=== PATIENT | male | born 1960 | race Hispanic/Latino ===

== ENCOUNTER → 2017-09-15 | Outpatient (CLI) | payer BC ==
[~2017-09-15] MED LIST: AMLODIPINE BESY10 MG PO; CARAFATE1 GM PO; CELEBREX100 MG PO; HYDROCODON-ACE1 EA11 PO; MINOXIDIL2.5 MG PO; OMEPRAZOLE40 MG PO; PANTOPRAZOLE SO40 MG PO; PYLERA CAPSULE1 EACH PO; lotrel
--- NOTE | 2017-09-15 12:32 | Diagnostic Imaging Report ---
EXAMINATION: MRI of the lumbar spine without contrast HISTORY: Low-back pain radiating to the right lower extremity for last 2 years with numbness and weakness COMPARISON: None. TECHNIQUE: Sagittal T1, T2, STIR; axial T2 and proton density. FINDINGS: It is assumed that there are 5 lumbar vertebrae. Curvature/Alignment: Normal lordosis. Vertebrae: No evidence of recent fracture, infection, or neoplasm. Conus: Normal, terminating at T12-L1 Cauda equina: Unremarkable. Lower thoracic: Unremarkable. Paraspinal soft tissues: Unremarkable. Degenerative changes: L1-L2: Minimal symmetric disc bulge and facet arthrosis without stenosis L2-L3: Minimal symmetric disc bulge without canal or foraminal stenoses L3-L4: Mild symmetric disc bulge and facet arthrosis. No significant canal or foraminal stenoses L4-L5: Minimal symmetric disc bulge and moderate facet arthrosis. No significant canal or foraminal stenosis. Minimal facet joint effusion or bone marrow edema and periarticular swelling mainly on the right, likely related to degenerative synovitis. L5-S1: Bilateral facet arthrosis without stenosis Sacroiliac joints: Unremarkable. IMPRESSION: 1. Minimal degenerative changes of the disc from L1-L2 to L4-L5 without canal or foraminal stenosis. No disc herniations or nerve root compression. 2. 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 Signed by: Dr. Wendy Blevins M.D. on 09/15/2017 12:28 PM
== END ==
LOC: MRI 07:27
PROVIDERS: ATTEND Specialist
DX: M99.03 Segmental and somatic dysfunction of lumbar region (principal)
CPT/HCPCS: 72148